=== PATIENT | male | born 2000 | race African-American/Black ===

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

== ENCOUNTER 2020-07-08 11:05 | Emergency (ER) | payer OTHER, SELFPAY ==
[2020-07-08] MEDS ORDERED: Lidocaine 1% w/Epinephrine 1:100K 30 ML VIAL ONE (11:33)
== END 2020-07-08 12:37 | disposition home or self-care (01) ==
LOC: NAV ERS 11:05
DX: L05.01 Pilonidal cyst with abscess (principal)
CPT/HCPCS: 10080; 87070; 87077; 87186; 87205; J2001

== ENCOUNTER 2020-07-10 05:03 | Emergency (ER) | payer SELFPAY ==
[2020-07-10] MEDS ORDERED: Naproxen 500 MG TAB ONE (05:38)
== END 2020-07-10 05:55 | disposition home or self-care (01) ==
LOC: NAV ERS 05:03
DX: Z48.817 Encounter for surgical aftercare following surgery on the skin and subcutaneous tissue (principal)
CPT/HCPCS: 99282

== ENCOUNTER 2020-07-12 22:12 | Emergency (ER) | payer SELFPAY | END 2020-07-12 22:44 | disposition home or self-care (01) | LOC: NAV ERS 22:12 | DX: Z48.817 Encounter for surgical aftercare following surgery on the skin and subcutaneous tissue (principal) | CPT/HCPCS: 99282 ==

== ENCOUNTER 2020-10-28 10:58 | Emergency (ER) | payer BC, SELFPAY | END 2020-10-28 11:51 | disposition home or self-care (01) | LOC: NAV ERS 10:58 | DX: T81.89XA Other complications of procedures, not elsewhere classified, initial encounter (principal) | CPT/HCPCS: 99281 ==

== ENCOUNTER 2020-11-26 14:54 | Emergency (ER) | payer SELFPAY | END 2020-11-26 15:44 | disposition home or self-care (01) | LOC: NAV ERS 14:54 | DX: Z48.817 Encounter for surgical aftercare following surgery on the skin and subcutaneous tissue (principal); F17.210 Nicotine dependence, cigarettes, uncomplicated | CPT/HCPCS: 99283 ==

== ENCOUNTER 2021-01-18 07:56 | Emergency (ER) | payer SELFPAY ==
[2021-01-18] MEDS ORDERED: Ondansetron ODT 4 MG TAB ONE (08:33)
== END 2021-01-18 09:00 | disposition home or self-care (01) ==
LOC: NAV ERS 07:56
DX: A08.4 Viral intestinal infection, unspecified (principal); F17.210 Nicotine dependence, cigarettes, uncomplicated
CPT/HCPCS: 99283; Q0162

== ENCOUNTER 2021-04-21 11:07 | Emergency (ER) | payer BC ==
[2021-04-21 12:16] LABS: ALT (SGPT) 21 U/L (8-55); AST (SGOT) 25 U/L (5-34); Albumin 4.1 g/dL (3.5-5.0); Alkaline Phosphatase 54 U/L (50-130); Anion Gap 12 mmol/L (10-20); BUN (Urea Nitrogen) 14 mg/dL (8.9-20.6); Bilirubin, Total 0.6 mg/dL (0.2-1.2); Calc. Creatinine Clearance 0 mL/min (70-130); Calcium 9.2 mg/dL (7.8-10.44); Carbon Dioxide 26 mmol/L (22-29); Chloride 106 mmol/L (98-107); Globulin 3.5 g/dL (2.4-3.5); Glucose 93 mg/dL (70-105); Protein, Total 7.6 g/dL (6.0-8.3); Sodium 140 mmol/L (136-145)
[2021-04-21 12:17] LABS: #Eosinphils 0.1 thou/uL (0.0-0.7); #Lymphocytes 1.4 thou/uL (1.20-3.40); #Monocytes 0.6 thou/uL (0.11-0.59); #Neutrophils 2.1 thou/uL (1.40-6.50); %Basophils 1.1 % (0.0-1.0); %Lymphocytes 33.2 % (28.0-48.0); %Monocytes 14.1 % (0.0-4.0); %Neutrophils 49.6 % (31.0-61.0); Anisocytosis SLIGHT = 6-15 cells (100X) (0-5/hpf); MDiff Complete? YES; Mean Corpuscular HGB CONC 30.3 g/dL (32.0-36.0); Mean Corpuscular Volume 79.3 fL (78.0-98.0); Mean Platelet Volume 9.7 fL (7.4-10.4); Platelet Count 260 thou/uL (130-400); RBC Distribution Width 15.2 % (11.5-14.5); Red Blood Cell (RBC) Count 5.82 mill/uL (4.00-5.20); White Blood Cell (WBC) Count 4.2 thou/uL (4.8-10.8)
== END 2021-04-21 12:55 | disposition home or self-care (01) ==
LOC: NAV ERS 11:07
DX: R07.89 Other chest pain (principal); F17.210 Nicotine dependence, cigarettes, uncomplicated
CPT/HCPCS: 71045; 80053; 84484; 85025; 93005

== ENCOUNTER 2021-09-07 12:17 | Emergency (ER) | payer BC, SELFPAY ==
[2021-09-07] MEDS ORDERED: Fluorescein Opthalmic Strip ONE (12:36)
[2021-09-07] MEDS ORDERED: Tetracaine 0.5% PF 4 ML BOT ONE (12:36)
[2021-09-07] MEDS ORDERED: Ibuprofen 800 MG TAB ONE (12:43)
== END 2021-09-07 13:08 | disposition home or self-care (01) ==
LOC: NAV ERS 12:17
DX: T15.02XA Foreign body in cornea, left eye, initial encounter (principal); J02.9 Acute pharyngitis, unspecified; F17.210 Nicotine dependence, cigarettes, uncomplicated; X58.XXXA Exposure to other specified factors, initial encounter
CPT/HCPCS: 87081; 87430; 99283

== ENCOUNTER 2023-03-04 08:08 | Emergency (ER) | payer BC ==
[2023-03-04] MEDS ORDERED: Ondansetron ODT 4 MG TAB ONE (09:16)
[2023-03-04] MEDS ORDERED: Acetaminophen 500 MG TAB ONE (09:30)
== END 2023-03-04 10:25 | disposition home or self-care (01) ==
LOC: NAV ERS 08:08
DX: R11.2 Nausea with vomiting, unspecified (principal); R05.9 Cough, unspecified; F17.210 Nicotine dependence, cigarettes, uncomplicated; Z20.822 Contact with and (suspected) exposure to COVID-19
CPT/HCPCS: 87635; 87804; 99284; Q0162

== ENCOUNTER 2023-04-02 18:36 | Emergency (ER) | payer BC, SELFPAY ==
[2023-04-02 19:04] LABS: Bilirubin Negative (Negative); Blood, Urine Trace (Negative); Clarity Clear (Clear); Glucose, Urine (Dipstick) Negative (Negative); Ketone, Urine Negative (Negative); Leukocyte Trace (Negative); Nitrite Negative (Negative); Protein, Urine (Dipstick) 30 mg/dL (Neg-Trace); pH, Urine 6.5 (5.0-9.0)
[2023-04-02 19:06] LABS: Specific Gravity, Urine 1.025 (1.005-1.030)
[2023-04-02 19:15] LABS: CAUTI Indications for Culture Pelvic or flank pain; RBC/HPF 0-3 HPF (0-3); Squamous Epithelial 0-3 HPF (0-3); Transitional Epithelial 0-3 HPF (None Seen)
[2023-04-02 19:17] LABS: Urine Culture Reflex Yes Yes
[2023-04-02] MEDS ORDERED: cefTRIAXone (ROCEPHIN) 500 MG VIAL ONE (19:29)
[2023-04-03 22:16] LABS: Chlam.trachomatis by PCR,Urine DETECTED (NotDetected); GC N.gonorrhoeae PCR,UrineVOID Not Detected (NotDetected)
== END 2023-04-02 19:55 | disposition home or self-care (01) ==
LOC: NAV ERS 18:36
DX: N34.2 Other urethritis (principal); R10.30 Lower abdominal pain, unspecified; F17.210 Nicotine dependence, cigarettes, uncomplicated
CPT/HCPCS: 81001; 87086; 87491; 87591; 96372; 99284; J0696

== ENCOUNTER 2023-04-08 12:30 | Emergency (ER) | payer BC ==
[2023-04-08] MEDS ORDERED: Ibuprofen 800 MG TAB ONE (12:59)
== END 2023-04-08 13:02 | disposition home or self-care (01) ==
LOC: NAV ERS 12:30
DX: N34.1 Nonspecific urethritis (principal); F17.210 Nicotine dependence, cigarettes, uncomplicated
CPT/HCPCS: 99283

== ENCOUNTER 2023-06-10 15:52 | Emergency (ER) | payer BC ==
[2023-06-10] MEDS ORDERED: Benzonatate 100 MG CAP ONE (16:30)
== END 2023-06-10 17:00 | disposition home or self-care (01) ==
LOC: NAV ERS 15:52
DX: R05.9 Cough, unspecified (principal); R50.9 Fever, unspecified; R11.10 Vomiting, unspecified; R09.81 Nasal congestion; F17.210 Nicotine dependence, cigarettes, uncomplicated
CPT/HCPCS: 71046

== ENCOUNTER 2023-07-16 12:28 | Emergency (ER) | payer BC | END 2023-07-16 13:20 | disposition home or self-care (01) | LOC: NAV ERS 12:28 | DX: J32.9 Chronic sinusitis, unspecified (principal); F17.210 Nicotine dependence, cigarettes, uncomplicated | CPT/HCPCS: 99283 ==

== ENCOUNTER 2025-04-09 10:50 | Emergency (ER) | payer BC | END 2025-04-09 11:42 | disposition home or self-care (01) | LOC: NAV ERS 10:50 | DX: B34.9 Viral infection, unspecified (principal); F17.210 Nicotine dependence, cigarettes, uncomplicated | CPT/HCPCS: 99283 ==